=== PATIENT | female | born 1975 | race Caucasian/White ===

== ENCOUNTER → 2017-05-14 | Outpatient (CLI) | payer OTHER ==
[~2017-05-14] MED LIST: CITA20 PO; METPRE4DP PO; Naprosyn500 MG PO; Percocet 5-3251 EACH PO
[2017-05-16 11:21] LABS: HPV Genotype 16 Not Detected (NOTDET); HPV Genotype 18 Not Detected (NOTDET)
[2017-05-24 18:23] LABS: HPV High Risk Other Not Detected (NOTDET)
== END ==
LOC: LAB 17:42
PROVIDERS: Registered Nurse Community Health
DX: Z12.4 Encounter for screening for malignant neoplasm of cervix (principal)
CPT/HCPCS: 87624; G0123